=== PATIENT | female | born 1990 | race Two or more races ===

== ENCOUNTER 2024-10-14 15:31 | Emergency (ER) | payer BC, OTHER ==
[2024-10-14] MEDS: Ketorolac 30 MG/ML SDV IM ONE (17:05)
[2024-10-14 17:09] LABS: BASOPHILS ABSOLUTE AUTO 0.0 x10^3/uL (0.0-0.2); BASOPHILS PERCENT AUTO 0.7 % (0.2-1.2); EOSINOPHILS ABSOLUTE AUTO 0.1 x10^3/uL (0.0-0.5); EOSINOPHILS PERCENT AUTO 1.7 % (0.0-4.0); IMMATURE GRAN ABSOLUTE AUTO 0.01 x10^3/uL (0.00-0.07); IMMATURE GRAN PERCENT AUTO 0.20 % (0.00-0.43); LYMPHOCYTES ABSOLUTE AUTO 2.2 x10^3/uL (1.0-4.8); LYMPHOCYTES PERCENT AUTO 40.7 % (25.0-50.0); MONOCYTES ABSOLUTE AUTO 0.4 x10^3/uL (0.0-0.8); MONOCYTES PERCENT AUTO 7.9 % (2.0-11.0); NEUTROPHILS ABSOLUTE AUTO 2.7 x10^3/uL (1.8-7.7); NEUTROPHILS PERCENT AUTO 48.8 % (50.0-80.0); PLATELET COUNT,PLT 292 x10^3/uL (130-400); RED BLOOD CELL COUNT 4.92 x10^6/uL (4.00-5.50); WHITE BLOOD CELL COUNT,WBC 5.4 x10^3/uL (4.0-10.0)
== END 2024-10-14 17:45 | disposition home or self-care (01) ==
LOC: VM.ED 15:31
DX: N92.6 Irregular menstruation, unspecified (principal); Z30.46 Encounter for surveillance of implantable subdermal contraceptive; Z79.899 Other long term (current) drug therapy
CPT/HCPCS: 36415; 81025; 85025; 96372; 99284; J1885